=== PATIENT | female | born 1955 | race Caucasian/White ===

== ENCOUNTER → 2017-06-26 | Outpatient (CLI) | payer OTHER | LOC: BMCIMAGING 14:17 | PROVIDERS: ATTEND Internal Medicine | DX: Z12.31 Encounter for screening mammogram for malignant neoplasm of breast (principal); Z85.3 Personal history of malignant neoplasm of breast | CPT/HCPCS: G0202 ==

== ENCOUNTER → 2018-06-27 | Outpatient (CLI) | payer OTHER | LOC: BMCIMAGING 13:35 | PROVIDERS: ATTEND Internal Medicine | DX: Z12.31 Encounter for screening mammogram for malignant neoplasm of breast (principal); Z85.3 Personal history of malignant neoplasm of breast ==

== ENCOUNTER → 2018-11-10 | Outpatient (CLI) | payer OTHER, MEDICARE | LOC: BMCIMAGING 13:39 | PROVIDERS: ATTEND Internal Medicine | DX: Z13.820 Encounter for screening for osteoporosis (principal); M85.89 Other specified disorders of bone density and structure, multiple sites ==

== ENCOUNTER 2019-02-21 12:39 | Emergency (ER) | payer OTHER, MEDICARE ==
[2019-02-21] MEDS ORDERED: NS 1,000 ML IV ONE (13:04)
[2019-02-21] MEDS ORDERED: ONDANSETRON 4 MG/2 ML VIAL IVP ONE (13:04)
[2019-02-21] MEDS ORDERED: HYDROmorphONE/DILAUDID 2 MG/ML INJ IVP ONE ×2 (13:04→15:07)
[2019-02-21 13:10] LABS: PLATELET COUNT 257 10^3/uL (150-400)
--- NOTE | 2019-02-21 13:11 | EDPHY ---
H & P Smoking Status: Never smoked <Frederick Penny B - Last Filed: 02/21/19 15:08> <King Goldstein - Last Filed: 02/21/19 22:46> Time Seen by Provider: 02/21/19 12:51 HPI/ROS: HPI Right-sided flank pain. 63-year-old female by private vehicle with her . This patient reports that last night prior to going to bed and somewhat yesterday she had a vague sensation of right-sided mid to upper flank pain with radiation around to the lateral chest wall on the right and right lower rib area. She has had some associated nausea but no vomiting. She reports that she had an endoscopy and colonoscopy but Dr. Yancey about 2 weeks ago. She reports that after this procedure she had a similar sensation but to a much lesser extent. She reports that this then resolved. She reports the pain is much better when she lays on her right side in the right lower lateral decubitus position. No fever. Denies any gross hematuria or urinary complaints. No history of trauma. ROS: Constitutional: No fever, no chills. No weakness. Eyes: No discharge. No changes in vision. ENT: No sore throat. No nasal congestion or rhinorrhea. Respiratory: No cough. No shortness of breath. Cardiac: No chest pain, no palpitations. Gastrointestinal: No abdominal pain, no vomiting, no diarrhea. As above. Genitourinary: No hematuria. No dysuria or increased frequency with urination. Musculoskeletal: As above. No neck pain. No myalgias or arthralgias. Skin: No rashes. Neurological: No headache. No focal weakness or altered sensation. Past medical history: Breast cancer. Lumpectomy. Social history: She is here with her . No alcohol. Nonsmoker. Physical Exam: General Appearance: Alert, she is laying on her right side, pleasant, she is not in distress. This patient is responding to questions appropriately and in full sentences. This patient appears well-hydrated and well-nourished. Eyes: Pupils equal and round no pallor or injection. No lid edema, erythema or injection. Respiratory: There are no retractions, lungs are clear to auscultation with good air movement bilaterally. Cardiovascular: Regular rate and rhythm. No murmur. Gastrointestinal: Abdomen is soft and nontender, no masses, bowel sounds normal. No focal tenderness at McBurney's point. No Fountain sign. Neurological: Motor sensory function is grossly intact. Cranial nerves are normal. Gait is normal. Skin: Warm and dry, no rashes. Musculoskeletal: Neck is supple and nontender. Vague and mild right-sided upper and mid flank tenderness on palpation. No left-sided flank tenderness on palpation. Extremities are symmetrical. All joints range without pain or impingement. Psychiatric: No agitation. No depression. Database: Patient endorses workup. EKG: Imaging: CT abdomen and pelvis without contrast: Possible small calculus left distal ureter no evidence of hydronephrosis. Otherwise an unremarkable study. Results were discussed with staff radiologist Dr. Ervin Acosta. Procedures: Emergency department course: Triage vital signs reviewed and are normal. The patient is afebrile. IV was placed. She will be started on IV normal saline with 500 cc to 1 L to be given over the next hour. She will initially be given 0.5 mg of IV hydromorphone and 4 mg of IV Zofran for pain and nausea. CT abdomen and pelvis without contrast obtained. 3:00 p.m., the patient was re-evaluated, resting on her right side. States that her pain is starting to come back. Results of her CT scan of her abdomen and pelvis without contrast discussed with her and her . She is now complaining of pain more high on her anterior lateral chest wall midclavicular line at the level of her mid breast. This is course is concerning for possible PE. I discussed obtaining a CT angiogram of her chest to evaluate for this. She and her endorse. She will be given another 0.5 mg of IV hydromorphone for pain control. I discussed case with my colleague Dr. King Goldstein. He assumes care of this patient at 3:00 p.m.. Differential Diagnosis: The differential diagnosis on this patient includes but is not limited to ureterolithiasis, urinary tract infection/pyelonephritis. Pneumonia, pulmonary embolism, pneumothorax, unlikely. This represents a partial list of diagnoses considered. These considerations are based on history, physical exam, past history, reassessment and diagnostic testing. (Frederick Penny) Constitutional: Initial Vital Signs Temperature (C) 36.4 C 02/21/19 12:41 Heart Rate 66 02/21/19 12:41 Respiratory Rate 16 02/21/19 12:41 Blood Pressure 127/59 H 02/21/19 12:41 O2 Sat (%) 97 02/21/19 12:41 O2 Delivery Mode Room Air Allergies/Adverse Reactions: No Known Allergies Allergy (Unverified 04/13/15 11:07) Home Medications: Medication Instructions Recorded Diazepam [Valium 5 MG (*)] 2.5 mg PO TID PRN #10 tab 02/21/19 Medical Decision Making <Frederick Penny - Last Filed: 02/21/19 15:08> - Diagnostics Imaging: Discussed imaging studies w/ call center receptionist Radiologist <King Goldstein - Last Filed: 02/21/19 22:46> - Diagnostics EKG Interpretation: An EKG obtained and was read and documented in trace view. Please see trace view for full reading and report. Sinus rhythm, no acute ischemic changes or signs of right heart strain (King Goldstein) Imaging Results: Imaging Impressions Abdomen/Pelvis CT 02/21/19 13:04 Impression: 1. Calculus suspected distal left ureter about 2 cm above the UVJ that is also seen on room service food service attendant scanogram image obtained. However, there is no associated hydronephrosis on the left. 2. Incidental liver cysts. Findings discussed with Frederick Penny MD at 13:40 hour, 02/21/2019. Attention: This CT examination is specifically designed to evaluate patients who are clinically suspected of having acute obstructive uropathy. This examination does not use radiographic contrast, and as such, provides only a limited evaluation of the abdomen, pelvis and retroperitoneum. If there is further clinical suspicion for pathological conditions other than obstructive uropathy, a complete CT evaluation of the abdomen and pelvis utilizing intravenous and oral contrast should be considered. Chest/Thorax CTA 02/21/19 15:07 Impression: 1. No evidence of thrombopulmonary embolic disease. 2. No evidence for acute cardiopulmonary abnormality. 3. Probable multinodular goiter. Ultrasound could be performed of the thyroid for further evaluation, as clinically indicated. 4. Hepatic cysts. 5. Multilevel degenerative change thoracic spine. Results called and discussed with Frederick Penny MD on 02/21/2019 at 16: 50. ED Course/Re-evaluation: 5:00 p.m. I discussed the CT results with the patient and . She states that she is still having pain and points to her right axilla. We agreed to perform EKG and troponin on the blood work that is already been sent as well as a troponin on blood now. 6:00 p.m. the patient had 2 troponins 4 hr apart. They are both negative. Discussed follow-up for her right axillary pain. She declines further workup or testing at this time. She is requesting some muscle relaxant. I will have cardiology follow up with her for stress testing. (King Goldstein) - Data Points Laboratory Results: Laboratory Results 02/21/19 12:55 02/21/19 12:55 02/21/19 02/21/19 02/21/19 17:36 13:41 13:25 WBC RBC Hgb Hct MCV MCH MCHC RDW Plt Count MPV Neut % (Auto) Lymph % (Auto) [place] % (Auto) Eos % (Auto) Baso % (Auto) Nucleat RBC Rel Count Absolute Neuts (auto) Absolute Lymphs (auto) Absolute Monos (auto) Absolute Eos (auto) Absolute Basos (auto) Absolute Nucleated RBC Immature Gran % Immature Gran # Sodium Potassium Chloride Carbon Dioxide Anion Gap BUN Creatinine Estimated GFR Glucose Calcium Total Bilirubin Conjugated Bilirubin Unconjugated Bilirubin AST ALT Alkaline Phosphatase POC Troponin I 0.01 ng/mL ng/mL (0.00-0.08) Troponin I < 0.012 ng/mL ng/mL (0.000-0.034) Total Protein Albumin Lipase Urine Color YELLOW Urine Appearance CLEAR Urine pH 7.0 (5.0-7.5) Ur Specific Hematite 1.021 (1.002-1.030) Urine Protein NEGATIVE (NEGATIVE) Urine Ketones TRACE H (NEGATIVE) Urine Blood NEGATIVE (NEGATIVE) Urine Nitrate NEGATIVE (NEGATIVE) Urine Bilirubin NEGATIVE (NEGATIVE) Urine Urobilinogen NEGATIVE EU EU (0.2-1.0) Ur Leukocyte Esterase NEGATIVE (NEGATIVE) Urine RBC 1-3 /hpf /hpf (0-3) Urine WBC 1-3 /hpf /hpf (0-3) Ur Epithelial Cells NONE SEEN /lpf /lpf (NONE-1+) Urine Mucus 1+ /lpf /lpf (NONE-1+) Urine Glucose NEGATIVE (NEGATIVE) 02/21/19 02/21/19 12:55 12:55 WBC 6.16 10^3/uL 10^3/uL (3.80-9.50) RBC 4.82 10^6/uL 10^6/uL (4.18-5.33) Hgb 14.0 g/dL g/dL (12.6-16.3) Hct 41.5 % % (38.0-47.0) MCV 86.1 fL fL (81.5-99.8) MCH 29.0 pg pg (27.9-34.1) MCHC 33.7 g/dL g/dL (32.4-36.7) RDW 12.2 % % (11.5-15.2) Plt Count 257 10^3/uL 10^3/uL (150-400) MPV 9.2 fL fL (8.7-11.7) Neut % (Auto) 81.4 % H % (39.3-74.2) Lymph % (Auto) 10.1 % L % (15.0-45.0) [place] % (Auto) 7.0 % % (4.5-13.0) Eos % (Auto) 0.3 % L % (0.6-7.6) Baso % (Auto) 1.0 % % (0.3-1.7) Nucleat RBC Rel Count 0.0 % % (0.0-0.2) Absolute Neuts (auto) 5.02 10^3/uL 10^3/uL (1.70-6.50) Absolute Lymphs (auto) 0.62 10^3/uL L 10^3/uL (1.00-3.00) Absolute Monos (auto) 0.43 10^3/uL 10^3/uL (0.30-0.80) Absolute Eos (auto) 0.02 10^3/uL L 10^3/uL (0.03-0.40) Absolute Basos (auto) 0.06 10^3/uL 10^3/uL (0.02-0.10) Absolute Nucleated RBC 0.00 10^3/uL 10^3/uL (0-0.01) Immature Gran % 0.2 % % (0.0-1.1) Immature Gran # 0.01 10^3/uL 10^3/uL (0.00-0.10) Sodium 138 mEq/L mEq/L (135-145) Potassium 4.2 mEq/L mEq/L (3.5-5.2) Chloride 105 mEq/L mEq/L (97-110) Carbon Dioxide 26 mEq/l mEq/l (22-31) Anion Gap 7 mEq/L mEq/L (6-14) BUN 18 mg/dL mg/dL (7-23) Creatinine 0.8 mg/dL mg/dL (0.6-1.0) Estimated GFR > 60 Glucose 94 mg/dL mg/dL (70-100) Calcium 9.2 mg/dL mg/dL (8.5-10.4) Total Bilirubin 0.6 mg/dL mg/dL (0.1-1.4) Conjugated Bilirubin 0.0 mg/dL mg/dL (0.0-0.5) Unconjugated Bilirubin 0.6 mg/dL mg/dL (0.0-1.1) AST 27 IU/L IU/L (14-46) ALT 35 IU/L IU/L (9-52) Alkaline Phosphatase 61 IU/L IU/L (38-126) POC Troponin I Troponin I Total Protein 6.1 g/dL L g/dL (6.3-8.2) Albumin 3.9 g/dL g/dL (3.5-5.0) Lipase 51 IU/L IU/L (23-300) Urine Color Urine Appearance Urine pH Ur Specific Hematite Urine Protein Urine Ketones Urine Blood Urine Nitrate Urine Bilirubin Urine Urobilinogen Ur Leukocyte Esterase Urine RBC Urine WBC Ur Epithelial Cells Urine Mucus Urine Glucose Medications Given: Discontinued Medications Hydromorphone HCl (Dilaudid) 0.5 mg IVP EDNOW ONE Stop: 02/21/19 13:05 Last Admin: 02/21/19 13:41 Dose: 0.5 mg Hydromorphone HCl (Dilaudid) 0.5 mg IVP EDNOW ONE Stop: 02/21/19 15:08 Last Admin: 02/21/19 15:38 Dose: 0.5 mg Sodium Chloride (Ns) 1,000 mls @ 0 mls/hr IV EDNOW ONE; Wide Open PRN Reason: Protocol Stop: 02/21/19 13:05 Last Admin: 02/21/19 13:40 Dose: 1,000 mls Ondansetron HCl (Zofran) 4 mg IVP EDNOW ONE Stop: 02/21/19 13:05 Last Admin: 02/21/19 13:41 Dose: 4 mg Point of Care Test Results: Chemistry 02/21/19 17:36 POC Troponin I 0.01 ng/mL ng/mL (0.00-0.08) Departure <Frederick Penny - Last Filed: 02/21/19 15:08> <King Goldstein - Last Filed: 02/21/19 22:46> - Departure Disposition: Home, Routine, Self-Care Clinical Impression: Right-sided chest wall pain Condition: Fair Instructions: Chest Pain (ED) Referrals: Tita Wynne MD [Primary Care Provider] - 2-3 days, call for appt. Doris Zimmerman MD [Medical Doctor] - 2-3 days, call for appt. Prescriptions: Diazepam [Valium 5 MG (*)] 2.5 mg PO TID PRN #10 tab PRN Reason: Spasms
[2019-02-21] MEDS ORDERED: IOPAMIDOL (ISOVUE 370) 100 ML BTL IV ONE (16:06)
--- NOTE | 2019-02-21 17:40 | CPEKG ---
Test Reason : OPEN Blood Pressure : / mmHG Vent. Rate : 056 BPM Atrial Rate : 056 BPM P-R Int : 174 ms QRS Dur : 087 ms QT Int : 525 ms P-R-T Axes : 079 077 078 degrees QTc Int : 507 ms Sinus rhythm Consider left ventricular hypertrophy Prolonged QT interval Confirmed by Rick Bahena ([id number]) on 02/21/2019 5:40:05 PM Referred By: RICK BAHENA Confirmed By:Rick Bahena
[2019-02-21 18:28] VITALS: BP 134/54
== END 2019-02-21 18:27 | disposition home or self-care (01) ==
DX: R07.89 Other chest pain (principal); K76.89 Other specified diseases of liver; M47.814 Spondylosis without myelopathy or radiculopathy, thoracic region; E86.9 Volume depletion, unspecified
CPT/HCPCS: 71275; 74176; 93005; 96361; 96374; 96375; 96376; 99285; J1170; J2405; Q9967; 84484-ER